=== PATIENT | female | born 1970 | race Caucasian/White ===

== ENCOUNTER 2021-07-12 11:28 | Emergency (ER) | payer OTHER ==
[~2021-07-12] VITALS: Ht 170.2 cm; Wt 95.3 kg
[2021-07-12] MEDS ORDERED: MICARDIS40 MG (12:05)
== END 2021-07-12 16:55 | disposition home or self-care (01) ==
LOC: ER 11:28
DX: I16.0 Hypertensive urgency (principal); I10 Essential (primary) hypertension; R07.89 Other chest pain

== ENCOUNTER 2022-06-15 10:41 | Emergency (ER) | payer OTHER ==
[~2022-06-15] VITALS: Ht 170.2 cm; Wt 98.4 kg
[~2022-06-15 10:41] MED LIST: MICARDIS40 MG
[2022-06-15] MEDS ORDERED: TOPROL XL50 M1 PO (11:26)
== END 2022-06-15 15:21 | disposition home or self-care (01) ==
LOC: ER 10:41
DX: S89.92XA Unspecified injury of left lower leg, initial encounter (principal); W22.8XXA Striking against or struck by other objects, initial encounter; Y93.9 Activity, unspecified; Y92.9 Unspecified place or not applicable; Y99.9 Unspecified external cause status; M25.562 Pain in left knee

== ENCOUNTER 2022-06-16 09:48 | Outpatient (CLI) | payer OTHER ==
[~2022-06-16 09:48] MED LIST changes: +TOPROL XL50 M1 PO
== END 2022-06-16 09:57 | disposition home or self-care (01) ==
LOC: MRI 09:48
PROVIDERS: ATTEND General Practice
DX: S83.92XA Sprain of unspecified site of left knee, initial encounter (principal)
CPT/HCPCS: 73721

== ENCOUNTER 2025-03-16 22:44 | Emergency (ER) | payer OTHER ==
[~2025-03-16] VITALS: Ht 170.2 cm; Wt 68.5 kg
[2025-03-16] MEDS ORDERED: PROGESTERONE200 MG (23:14)
[2025-03-16] MEDS ORDERED: THYROID (23:14)
== END 2025-03-17 01:07 | disposition home or self-care (01) ==
LOC: ER 22:44
DX: S01.121A Laceration with foreign body of right eyelid and periocular area, initial encounter (principal); W18.39XA Other fall on same level, initial encounter; Y93.89 Activity, other specified; Y92.89 Other specified places as the place of occurrence of the external cause; Y99.8 Other external cause status